=== PATIENT | male | born 1995 | race Caucasian/White ===

== ENCOUNTER 2024-02-28 17:45 | Emergency (ER) | payer OTHER, SELFPAY ==
[2024-02-28 17:48] VITALS: BP 142/79
[2024-02-28 18:09] LABS: % Basophils 0.4 % (0-2); % Immature Granulocytes 0.3 % (0-0.5); % Lymphocytes 23.3 % (20.5-51.1); % Monocytes 6.6 % (1.7-9.3); % Neutrophils 67.4 % (42.2-75.2); Absolute Eosinophils 0.2 10^3/uL (0-0.7); Absolute Lymphocytes 1.7 10^3/uL (1.2-3.4); Absolute Monocytes 0.5 10^3/uL (0.1-0.6); Hematocrit 45.1 % (39.0-52.0); Hemoglobin 16.1 g/dL (13.0-18.0); Mean Corp Hgb Conc. 35.7 g/dL (33.0-37.0); Mean Corpuscular Hgb 29.2 pg (27.0-31.0); Mean Corpuscular Volume 81.7 fL (80.0-94.0); Mean Platelet Volume 9.1 fL (7.4-10.4); Nucleated Red Blood Cells % 0 % (-); Platelet Count 209 10^3/uL (130-400); Red Blood Cell Count 5.52 10^6/uL (4.70-6.10); Red Cell Dist. Width 12.3 % (11.5-14.5); White Blood Cell Count 7.4 10^3/uL (4.8-10.8)
[2024-02-28 18:34] LABS: ALT (SGPT) 25 U/L (0-50); AST (SGOT) 29 U/L (17-59); Albumin 4.9 g/dl (3.5-5.0); Alkaline Phosphatase 64 U/L (38-126); Blood Urea Nitrogen 14 mg/dl (9-20); Calcium 9.7 mg/dl (8.4-10.2); Carbon Dioxide 25 mmol/L (22-30); Chloride 100 mmol/L (98-107); Glucose 100 mg/dl (70-99); Potassium 4.2 mmol/L (3.5-5.1); Sodium 136 mmol/L (135-145); Total Bilirubin 0.7 mg/dl (0.2-1.3); Total Protein 7.3 g/dl (6.3-8.2); eGFR > 60.00
[2024-02-28] MEDS: ANTIVERT 25 MG PO (20:01)
[2024-02-28] MEDS: NSS 1000 IV (20:10)
--- NOTE | 2024-02-28 20:26 | ED.GENMED ---
History of Present Illness
General
Chief Complaint: Dizziness
Source: patient and family (Father at bedside)
Exam Limitations: none
Time Seen by Provider: 02/28/24 19:47
Nursing documentation reviewed up to this point in time: agreed with
Travel History
Have you had any contact with someone who has COVID-19?: No
Do you have any symptoms of coronavirus? Fever > 100 degrees, chills, cough, shortness of breath, sore throat, loss of taste or smell, muscle aches, or headache?: No
History of Present Illness
History of Present Illness:
28-year-old male with no past medical history states he flew to [facility], after having a night of drinking and did use cocaine the first night, dizzy the next day and assumed it was a hangover. The next day he drank alcohol again and felt a little
better he said but when he flew home 3 days ago, he still felt poorly, just kind of laid around 2 days ago he slept all day. Yesterday he states he got up and was still dizzy, had difficulty keeping his balance, felt fatigued, difficulty focusing.
No head injury, no LOC.
Denies nausea, headache.
Past History
Past History
ED Past Medical History: None
ED Past Surgical History: None
Social History
Tobacco: Non-smoker
Alcohol: Occasional
Drug: Cocaine (used it the night he arrived in [facility] 5 days ago, none since. Denies any other recreational drug use)
Personal: Single
Living: with family
Employment: Employed
Review of Systems
Review of Systems
Allergies reviewed?: Yes
All Other Systems: ROS reviewed and negative except as documented in HPI and ROS
Constitutional: Reports fatigue; Denies fever or chills
EENT: Denies sore throat
Respiratory: Denies trouble breathing
Cardiac: Denies chest pain or palpitations
ABD/GI: Denies abdominal pain, nausea or vomiting
: Denies dysuria or difficulty voiding
Musculoskeletal: Reports no symptoms
Skin: Reports no symptoms
Neurological: Reports dizzy; Denies headache, weakness or numbness
Phy Exam
Physical Exam
Physical Exam:
GENERAL: No acute distress. A&Ox3.
CONSTITUTIONAL: Afebrile.
EYES: PERRL, conjunctivae normal, no nystagmus
Neck: Supple
ENMT: moist mucus membranes, Pharynx nl
RESPIRATORY: Regular respirations, nonlabored, lungs clear.
CARDIOVASCULAR: Regular rate and rhythm, no murmurs, no rubs.
GI: Soft, nontender, normal BS
MUSCULOSKELETAL: Moves with ease. Well perfused.
SKIN: Warm, dry, pink
PSYCH: Normal mood and affect. Well kept, interactive and appropriate
NEUROLOGIC: Awake, alert and oriented. No focal neurological deficits. Speech clear. Cranial nerves II through XII intact. Deorcc-vr-pgem intact. Ambulates well with steady gait.
Course
Orders/Labs/Results
Orders:
Orders
02/28/24 18:03
Complete Blood Count/With Diff Urgent
Comprehensive Metabolic Panel Urgent
02/28/24 19:48
0.9% Sodium Chloride 1000 ml [Nss] 1,000 ml IV BOLUS
02/28/24 19:49
Meclizine [Antivert] 25 mg PO NOW STA
02/28/24 20:41
COVID-19 Antigen Urgent
Source: Nasal Swab
Urine Drug Abuse Screen Urgent
Date Specimen was Collected: 02/28/24
Time Specimen was Collected: 20:41
Abnormal Lab Results
02/28/24
18:03
Glucose 100 H mg/dl
(70-99)
02/28/24 18:03
02/28/24 18:03
Vital Signs
Initial and Last Documented VS:
Initial Vital Signs
Temp Pulse Resp BP Pulse Ox
98.0 F 70 16 142/79 100
02/28/24 17:48 02/28/24 17:48 02/28/24 17:48 02/28/24 17:48 02/28/24 17:48
Last Documented Vital Signs
Temp Pulse Resp BP Pulse Ox
98.0 F 64 18 112/69 97
02/28/24 17:48 02/28/24 22:04 02/28/24 22:04 02/28/24 22:04 02/28/24 22:04
MDM/Problems Addressed
Differential Diagnosis Includes:
dehydration, BPPV, recreational drug use side effect
MDM/Problems Addressed:
28-year-old male with no past medical history states he flew to [facility], after having a night of drinking and did use cocaine the first night, dizzy the next day and assumed it was a hangover. The next day he drank alcohol again and felt a little
better he said but when he flew home 3 days ago, he still felt poorly, just kind of laid around 2 days ago he slept all day. Yesterday he states he got up and was still dizzy, had difficulty keeping his balance, felt fatigued, difficulty focusing.
No head injury, no LOC.
Denies nausea, headache.
NAD, Neuro exam is normal
No head injury, no LOC, no focal neuro deficits, no head CT indicated
02/28/2024 2158 PM
CBC normal
CMP normal
UDS negative
COVID-negative
After 1L NSS and Meclizine, feeling better.
Rx for Meclizine sent to his pharmacy
Pt ambulated out with normal gait at discharge
*Critical Care Note
Total Time (30-74mins, 75-104mins- exclusive of procedures): Not Applicable
ED Attending Note
-
Portions of this chart may have been created with voice recognition software.� Occasional wrong word or��sound alike� substitutions may have occurred due to the inherent limitations of voice recognition software.
Discharge Plan
Departure
Patient Disposition: Home (Routine Discharge)
Date of Disposition: 02/28/24
Time of Disposition: 21:59
Patient with high blood pressure during this ER visit?: No
Condition: Good
Discharge Problem:
Dizziness
Instructions: Vertigo (a Type of Dizziness) (DC)
Prescriptions:
New
meclizine 50 mg tablet
50 mg PO BID PRN (Reason: dizziness) Qty: 10 0RF
Referrals:
Jorge Marley MD [Family Provider] - As needed
Stand Alone Forms: Return to Work
Activity Restrictions/Additional Instructions:
As we discussed, your workup here today shows nothing worrisome.
I sent a prescription to your pharmacy for the Antivert to take twice a day for 5 days as needed.
See your doctor if you are still experiencing the dizziness after 5 days.
Drink plenty of fluids to stay hydrated
Rest tomorrow
Return here immediately for worsening symptoms, starting to vomit or feeling sicker in any way.
Interventions
Interventions:
*Risk Screen - Suicide Last Done: 02/28/24 19:23
*General Assessment Last Done: 02/28/24 20:22
*Neglect/Abuse Screening Last Done: 02/28/24 19:23
ED- Fall Risk Assessment Last Done: 02/28/24 22:22
*ED COVID-19 Vaccine History Last Done: 02/28/24 20:22
*Nursing Disposition Last Done: 02/28/24 22:22
ED- Neurological Assessment Last Done: 02/28/24 20:00
ED- Cardiac Assessment Last Done: 02/28/24 22:22
ED Swallowing Screen Last Done: 02/28/24 20:00
Discharge Date and Time
Discharge Date/Time: 02/28/24 22:23
Print Language: SAMI
[2024-02-28 21:03] LABS: Amphetamines Negative (Negative); Barbiturates Negative (Negative); Benzodiazepines Negative (Negative); Buprenorphine Negative (Negative); Cocaine Negative (Negative)
[2024-02-28 21:04] LABS: COVID-19 Antigen Negative (Negative); Marijuana Negative (Negative); Methadone Negative (Negative); Methamphetamines Negative (Negative); Opiates Negative (Negative); Phencyclidine Negative (Negative); Tricyclic Antidepressants Negative (Negative)
[2024-02-28 22:04] VITALS: BP 112/69
== END 2024-02-28 22:23 | disposition home or self-care (01) ==
LOC: EMR 17:45
PROVIDERS: Emergency Medicine; Registered Nurse; EMERGENCY PHYSICIAN Emergency Medicine; FAMILY PHYSICIAN Internal Medicine
DX: R42 Dizziness and giddiness (principal); Z11.52 Encounter for screening for COVID-19
CPT/HCPCS: 99284; 96360; 80053; 80306; 85025; 87811